=== PATIENT | female | born 1935 | race Caucasian/White ===

== ENCOUNTER 2023-12-12 12:51 | Inpatient (IN) ==
--- NOTE | 2023-12-12 13:21 | Emergency Department Note ---
History of Present Illness General Chief complaint: Fall Stated complaint: FALL Time Seen by Provider: 12/12/23 13:16 History of Present Illness Maximum Pain Intensity: 4 Chief Complaint: "Fall, chin laceration, left ear pain". History of Present Illness: This patient is an 88-year-old female who presents to the Emergency Department via EMS for evaluation of their facial injury status post fall. Patient sustained the laceration while earlier today just prior to arrival was ambulating and sustained a ground-level fall. She tripped on the sidewalk and fell forward. She does not believe her tetanus shot is up-to-date. She notes left ear region pain where there is some bleeding and pain in her left jaw. She also notes laceration to the right chin region. No loss of consciousness. No anticoagulant use. Home Medications Medication Instructions Recorded Confirmed Type Vitamin D3 1 tab PO DAILY 12/12/23 12/12/23 History ascorbic acid (vitamin C) 1 - 2 tabs PO DAILY 12/12/23 12/12/23 History aspirin 81 mg tablet,delayed 81 mg PO DAILY 12/12/23 12/12/23 History release biotin 1 cap PO DAILY 12/12/23 12/12/23 History calcium 2 tab PO DAILY 12/12/23 12/12/23 History metoprolol tartrate 25 mg tablet 12.5 mg PO DAILY 12/12/23 12/12/23 History mosvdqml-xawisdvq-fbn C 250 1 tab PO UD 12/12/23 12/12/23 History mg-herbal no.124 8.875 mg chewable tablet (Airborne (ascorbic acid)) multivitamin 1 tab PO DAILY 12/12/23 12/12/23 History vitamin E 1 tab PO DAILY 12/12/23 12/12/23 History Past Med/Surg History Social History Smoking Status: Never smoker Feels Safe at Home: Yes Review of Systems A total of 10 systems reviewed and were otherwise negative Physical Exam Vital Signs Vital Signs - 24 hr 12/12/23 13:02 12/12/23 15:22 12/12/23 17:00 Temperature 36.6 C Temperature Source Oral Pulse Rate 60 Pulse Rate [Finger] 64 62 Pulse Rhythm [Finger] Regular Pulse Strength [Finger] Normal Respiratory Rate 16 20 16 Respiratory Effort / Characteristics Non-Labored Spontaneous Non-Labored Spontaneous Respiratory Depth Normal Normal Normal Respiratory Pattern Regular Blood Pressure 188/139 H Blood Pressure [Right Arm] 178/100 H 172/102 H Blood Pressure Mean 155 Blood Pressure Mean [Right Arm] 126 125 Blood Pressure Position [Right Arm] Semi-fowlers Pulse Oximetry 98 97 96 Oxygen Delivery Method Room Air Room Air Room Air Sepsis Recent Fever Within 48 Hours No Sepsis New/Unexplained Change in Mental Status No Sepsis Action Taken by Nursing No Action Required Physical Exam: VITAL SIGNS - Vital signs and nursing notes were reviewed. Stable and afebrile. Hypertensive. GENERAL -88-year-old female appearing her stated age. Communicates well with provider and answers questions appropriately. SKIN - There is a 2 cm laceration noted chin region on the right side. The edges gape apart with traction. There is minimal active bleeding appreciated. No deep structures including vessels, musculature, or bony structures are appreciated. HEAD - Normocephalic. No Alexander's Sign or Raccoon's Eyes. No depressed skull fractures palpable. EYES - PERRL with EOMI bilaterally. Without subconjunctival hemorrhage. Palpebral conjunctiva pink and moist with no injection. EARS - No deformities of external structures noted on gross examination bilaterally. Left ear canal with visible blood that is dripping from the left ear and a slow steady trickle. Left TM mostly obscured. No sign of laceration to the ear canal. NOSE - Midline and without cyanosis. No epistaxis or clear watery discharge noted. Septum midline without deviation. No septal hematoma noted. No overlying ecchymosis noted. MOUTH/OROPHARYNX - Without perioral cyanosis. Tongue midline with equal elevation of palate bilaterally. No blood noted in the oropharynx. No tonsillar hypertrophy, erythema, or exudates noted. No dental fractures noted. Left TMJ region tender with suspected fracture/dislocation. NECK - FROM assessed. No tenderness to palpation over the cervical spinous processes. No cervical paraspinal muscle tenderness noted. LUNGS - Chest wall symmetric without accessory muscle use, intercostals retractions, or central cyanosis. Normal vesicular breath sounds CTA B/L. No wheezes, rales, or rhonchi appreciated. CARDIAC - RRR EXTREMITIES - No gross deformities noted of the extremities. +5/5 strength noted in UE/LE bilaterally. NEUROLOGIC - Cranial nerves II through XII grossly intact. PSYCH -alert, oriented and pleasant on exam. Course Administered Medications Sodium Chloride (Nss) 1,000 mls @ 100 mls/hr IV .Q10H OTILIA Stop: 01/11/24 16:59 Last Admin: 12/12/23 17:06 Dose: 100 mls/hr Documented By: LMM Discontinued Medications Diphtheria/Pertussis/Tetanus Vacc (Diphther/Tetan/Pertus Vaccine (Tdap, Adol/Adult) 0.5ml) 0.5 ml IM .ONCE ONE Stop: 12/12/23 14:59 Last Admin: 12/12/23 15:17 Dose: 0.5 ml Documented By: JL Acetaminophen (Ofirmev) 650 mg in 65 mls @ 260 mls/hr IV NOW ONE; Protocol Stop: 12/12/23 16:59 Last Infusion: 12/12/23 17:26 Dose: Infused Documented By: Admin: 12/12/23 17:09 Dose: 260 mls/hr Documented By: RADHA Ampicillin Sodium/Sulbactam Sodium 3,000 mg/ Sodium Chloride 100 mls @ 200 mls/hr IV NOW STA Stop: 12/12/23 19:09 Last Infusion: 12/12/23 19:54 Dose: Infused Documented By: Admin: 12/12/23 19:23 Dose: 200 mls/hr Documented By: DREW Lidocaine (Lidocaine/Epineph/Tetracaine 1 Ea Syr) 1 each EXT NOW STA Stop: 12/12/23 13:33 Last Admin: 12/12/23 14:10 Dose: 1 each Documented By: DERREK Medical Decision Making Laboratory Data 12/12/23 16:35 12/12/23 16:35 Lab Results 12/12/23 Range/Units 16:35 WBC 10.65 (4.8-10.8) K/ul RBC 4.80 (4.20-5.40) M/uL Hgb 15.4 (12.0-16.0) g/dl Hct 43.7 (37.0-47.0) % MCV 91.0 (80.0-100.0) fL MCH 32.1 (25.0-34.0) pg MCHC 35.2 (32.0-36.0) g/dL RDW Std Deviation 41.7 (36.4-46.3) fL RDW Coeff of Gil 12.4 (11.5-14.5) % Plt Count 233 (130-400) K/uL MPV 9.4 (9.4-12.4) fL Immature Gran % (Auto) 0.4 % Neut % (Auto) 82.7 % Lymph % (Auto) 10.3 % [place] % (Auto) 6.0 % Eos % (Auto) 0.1 % Baso % (Auto) 0.5 % Neut # (Auto) 8.81 H (1.40-6.50) K/uL Lymph # (Auto) 1.10 L (1.20-3.40) K/uL [place] # (Auto) 0.64 H (0.11-0.59) K/uL Eos # (Auto) 0.01 (0.00-0.50) K/uL Baso # (Auto) 0.05 (0.00-0.20) K/uL Immature Gran # (Auto) 0.04 (0.01-0.20) K/uL PT 10.7 (9.0-12.0) Seconds INR 1.0 (0.9-1.1) APTT 36 H (21-31) Seconds PTT Ratio 1.3 Sodium 132 L (136-145) mmol/L Potassium 4.3 (3.5-5.1) mmol/L Chloride 98 (98-107) mmol/L Carbon Dioxide 27 (21-32) mmol/L Anion Gap 7 (3-11) BUN 15 (6-23) mg/dl Creatinine 0.67 (0.6-1.2) mg/dl Est Cr Clr Drug Dosing 58.2 ml/min Est GFR ( Amer) 90.3 ml/min Est GFR (Non-Af Amer) 77.9 ml/min BUN/Creatinine Ratio 22.4 H (10-20) Glucose 114 H (70-99(Fasting)) mg/dl Calcium 10.2 (8.6-10.3) mg/dl Total Bilirubin 1.3 H (0.2-1.0) mg/dl AST 37 (13-39) U/L ALT 27 (7-52) U/L Alkaline Phosphatase 65 (34-104) U/L Total Protein 7.2 (6.0-8.3) gm/dl Albumin 4.5 (3.4-5.0) gm/dl Globulin 2.7 (2.5-4.0) gm/dl Albumin/Globulin Ratio 1.7 (0.9-2) Imaging Data Radiologist's Impression: Cervical Spine CT 12/12/23 13:[address] DOSE: HISTORY: Fall, L ear bleeding, chin laceration, facial pain TECHNIQUE: Multiaxial CT images of the cervical spine were performed and reformatted in the sagittal and coronal plane without the use of contrast. A dose lowering technique was utilized adhering to the principles of ALARA. COMPARISON: None. FINDINGS: There is a displaced/dislocated left mandibular condyle fracture which is better appreciated on the same day maxillofacial CT. No pneumothorax. Prevertebral soft tissues and the C1-C2 interval are intact. No fracture or subluxation within the cervical spine. Mild right and moderate left facet degenerative changes. There is severe disc space narrowing at C5-C6 and C6-C7 with small endplate osteophytes. IMPRESSION: 1. No fractures within the cervical spine. 2. A displaced/dislocated left mandibular condyle fracture which is better appreciated on the same day maxillofacial CT. ACT 112: Negative or not required by law. Electronically signed by: Sawyer Zuniga M.D. 12/12/2023 2:[address] 12/12/23 13:31 CT SCAN OF THE FACIAL BONES WITHOUT IV CONTRAST CLINICAL HISTORY: Fall. Bleeding from left ear. Chin laceration. COMPARISON STUDY: No priors. TECHNIQUE: High-resolution CT scan of the facial bones is performed. Images are reviewed in the axial, sagittal, and coronal planes. IV contrast was not administered for this examination. A dose lowering technique was utilized adhering to the principles of ALARA. FINDINGS: The skeletal structures are osteopenic. There is a comminuted and displaced fracture through the left mandibular neck with displaced fragments and dislocation of the left temporomandibular joint. There is surrounding hemorrhage. The remainder of the mandible appears intact. The right temporomandibular joint is preserved. The bony orbits are intact and the orbital contents are within normal limits noting bilateral ocular lens implants. The zygomatic arches, nasal bones, and pterygoid plates are preserved. The maxilla images intact. There are no layering blood products within the paranasal sinuses. There is trace mucosal thickening within the maxillary antra noting a 9 mm retention cyst on the left. Trace mucosal thickening is also seen in the ethmoid sinuses. Mastoid air cells are well pneumatized. The visualized calvarium and upper cervical spine are maintained. Partially imaged brain parenchyma is within normal limits. IMPRESSION: 1. Comminuted fracture of the left mandibular neck with displaced fragments and dislocation of the left TMJ. 2. The remainder of the mandible appears intact. 3. No additional facial bone fracture is seen. ACT 112: Negative or not required by law. Electronically signed by: Bruno Penn M.D. 12/12/2023 2:[address] 12/12/23 13:31 CT OF THE HEAD WITHOUT CONTRAST CLINICAL HISTORY: Fall, L ear bleeding, chin laceration, facial pain COMPARISON STUDY: No previous studies for comparison. CT DOSE: 1262.87 mGy.cm TECHNIQUE: Helical axial images of the head were obtained without IV contrast. Automated exposure control was utilized for the study. A dose lowering technique was utilized adhering to the principles of ALARA. FINDINGS: No acute intracranial hemorrhage, midline shift or mass effect is present. The ventricular system is unremarkable. The basal cisterns are patent. No extra-axial collections are present. There are no findings to suggest acute dural sinus thrombosis or acute territorial infarct. No calvarial fractures are present. Fracture/dislocation of the left mandibular condyle is better depicted on the facial bone CT which will be reported separately. Soft tissue thickening/small amount of hemorrhage within the left external auditory canal is present. IMPRESSION: 1. No acute intracranial findings. 2. Fracture/dislocation of the left mandibular condyle, better depicted on the facial bone CT which will be reported separately. Soft tissue thickening/small amount of hemorrhage within the left external auditory canal. 3. No calvarial fractures. ACT 112: Negative or not required by law. Electronically signed by: Gasper Baxter M.D. 12/12/2023 2:23 PM MDM Narrative ED Course: Patient was seen and evaluated as above. Patient presents to us today status post ground-level fall. Options of care were discussed with the patient. Patient had no focal neurological deficits. CT imaging of the head, face and neck were performed. Left TMJ fracture dislocation noted. I spoke with Dr. Hightower about the findings. He will come to evaluate the patient. Labs were ordered and revealed no leukocytosis or concerning anemia. Mild hyponatremia 132. Hyperglycemia 114. T. bili 1.3. Maintenance fluids ordered as well as IV acetaminophen. Risks and benefits of performing primary wound closure versus no repair were discussed with the patient who verbalizes understanding. Verbal consent was obtained prior to performing the procedure. Let gel was used to anesthetize the chin laceration. The wound was cleansed and prepped in the typical sterile fashion utilizing normal saline and Betadine. The wound was sterilely draped. Once proper anesthetization was established, the wound was further examined and demonstrated no evidence of deep structure injury or retained foreign body. The wound was copiously irrigated with normal saline and Betadine. The wound was closed using 5 simple, 6-0 nylon sutures with the wound edges being well approximated. Patient tolerated the procedure well. No complications were met. The wound was cleansed and dressed with a Bacitracin layer. Tetanus vaccine updated. Plan at this time after patient was evaluate by OMFS, Dr. Hightower is to proceed with operative intervention. She will be admitted to the medicine service overnight, IV antibiotics, n.p.o. after midnight and surgery tomorrow. This is reasonable. The bleeding from the left ear has slowed and at this time is not felt to require emergent intervention. I did discuss today's findings and plan of care with the patient's daughter via speaker phone in the room after patient called her daughter. Case discussed with the hospitalist service. Please refer to further documentation regarding her stay. In the evaluation and treatment of this patient the following differential diagnoses entertained: Fracture, dislocation, subluxation, contusion, sprain, strain, among others Impression & Plan Fall, Facial laceration, Mandibular fracture Discharge Plan Visit Data Chief Complaint: Fall Stated Complaint: FALL ED Provider: Mariola Collado ED Midlevel Provider: Poncho Pena Discharge Problem: Fall, Facial laceration, Mandibular fracture Patient Disposition: Home - Self-Care Condition: Good Discharge Instructions Interventions: ED Discharge Assessment Last Done: 12/12/23 21:40 Forms Stand Alone Forms: [facility], Important Visit Information Prescriptions Prescriptions: No Action multivitamin [Multi-Vitamin] Tablet 1 tab PO DAILY aspirin [Aspir-81] 81 mg Tablet,Delayed Release (Dr/Ec) 81 mg PO DAILY metoprolol tartrate 25 mg tablet 12.5 mg PO DAILY Airborne (ascorbic acid) 250-8.875 mg Tablet,Chewable 1 tab PO UD Vitamin D3 1 tab PO DAILY ascorbic acid (vitamin C) 1 - 2 tabs PO DAILY biotin 1 cap PO DAILY calcium 2 tab PO DAILY vitamin E 1 tab PO DAILY Referrals Referrals: Sawyer Nobles DO [Primary Care Provider] -
[2023-12-12] MEDS: LIDOCAINE/EPINEPH/TETRACAINE 1 EA SYR EXT STA (14:10)
--- NOTE | 2023-12-12 14:18 | CT Scan Report ---
CERVICAL SPINE CT CT DOSE: HISTORY: Fall, L ear bleeding, chin laceration, facial pain TECHNIQUE: Multiaxial CT images of the cervical spine were performed and reformatted in the sagittal and coronal plane without the use of contrast. A dose lowering technique was utilized adhering to th e principles of ALARA. COMPARISON: None. FINDINGS: There is a displaced/dislocated left mandibular condyle fracture which is better appreciate d on the same day maxillofacial CT. No pneumothorax. Prevertebral soft tissues and the C1-C2 interval are intact. No fracture or subluxation within the cervical spine. Mild right and moderate left facet degenerative changes. There is severe disc space narrowing at C5-C6 and C6-C7 with small endplate os teophytes. IMPRESSION: 1. No fractures within the cervical spine. 2. A displaced/dislocated left mandibular condyle fracture which is better appreciated on the same da y maxillofacial CT. ACT 112: Negative or not required by law. Electronically signed by: Sawyer Zuniga M.D. 12/12/2023 2:16 PM
--- NOTE | 2023-12-12 14:25 | CT Scan Report ---
CT OF THE HEAD WITHOUT CONTRAST CLINICAL HISTORY: Fall, L ear bleeding, chin laceration, facial pain COMPARISON STUDY: No previous studies for comparison. CT DOSE: 1262.87 mGy.cm TECHNIQUE: Helical axial images of the head were obtained without IV contrast. Automated exposure con trol was utilized for the study. A dose lowering technique was utilized adhering to the principles o f ALARA. FINDINGS: No acute intracranial hemorrhage, midline shift or mass effect is present. The ventricular system is unremarkable. The basal cisterns are patent. No extra-axial collections are present. There are no findings to suggest acute dural sinus thrombosis or acute territorial infarct. No calvarial fr actures are present. Fracture/dislocation of the left mandibular condyle is better depicted on the fa cial bone CT which will be reported separately. Soft tissue thickening/small amount of hemorrhage wit hin the left external auditory canal is present. IMPRESSION: 1. No acute intracranial findings. 2. Fracture/dislocation of the left mandibular condyle, better depicted on the facial bone CT which w ill be reported separately. Soft tissue thickening/small amount of hemorrhage within the left externa l auditory canal. 3. No calvarial fractures. ACT 112: Negative or not required by law. Electronically signed by: Gasper Baxter M.D. 12/12/2023 2:23 PM
--- NOTE | 2023-12-12 14:39 | CT Scan Report ---
CT SCAN OF THE FACIAL BONES WITHOUT IV CONTRAST CLINICAL HISTORY: Fall. Bleeding from left ear. Chin laceration. COMPARISON STUDY: No priors. TECHNIQUE: High-resolution CT scan of the facial bones is performed. Images are reviewed in the axia l, sagittal, and coronal planes. IV contrast was not administered for this examination. A dose lower ing technique was utilized adhering to the principles of ALARA. FINDINGS: The skeletal structures are osteopenic. There is a comminuted and displaced fracture throug h the left mandibular neck with displaced fragments and dislocation of the left temporomandibular jolanta nt. There is surrounding hemorrhage. The remainder of the mandible appears intact. The right temporom andibular joint is preserved. The bony orbits are intact and the orbital contents are within normal l imits noting bilateral ocular lens implants. The zygomatic arches, nasal bones, and pterygoid plates are preserved. The maxilla images intact. There are no layering blood products within the paranasal s inuses. There is trace mucosal thickening within the maxillary antra noting a 9 mm retention cyst on the left. Trace mucosal thickening is also seen in the ethmoid sinuses. Mastoid air cells are well pn eumatized. The visualized calvarium and upper cervical spine are maintained. Partially imaged brain p arenchyma is within normal limits. IMPRESSION: 1. Comminuted fracture of the left mandibular neck with displaced fragments and dislocation of the le ft TMJ. 2. The remainder of the mandible appears intact. 3. No additional facial bone fracture is seen. ACT 112: Negative or not required by law. Electronically signed by: Bruno Penn M.D. 12/12/2023 2:37 PM
[2023-12-12] MEDS: DIPHTHER/TETAN/PERTUS Vaccine (Tdap, Adol/Adult) 0.5mL IM ONE (15:17)
[2023-12-12 17:04] LABS: Basophils # (auto) 0.05 K/uL (0.00-0.20); Basophils % (auto) 0.5 %; Eosinophils # (auto) 0.01 K/uL (0.00-0.50); Eosinophils % (auto) 0.1 %; Hematocrit (blood only) 43.7 % (37.0-47.0); Hemoglobin 15.4 g/dl (12.0-16.0); Immature Granulocytes # (auto) 0.04 K/uL (0.01-0.20); Immature Granulocytes % (auto) 0.4 %; Lymphocytes % (auto) 10.3 %; Mean Corpuscular Hemoglobin 32.1 pg (25.0-34.0); Mean Corpuscular Hgb Conc 35.2 g/dL (32.0-36.0); Mean Platelet Volume 9.4 fL (9.4-12.4); Monocytes # (auto) 0.64 K/uL (0.11-0.59); Neutrophils # (auto) 8.81 K/uL (1.40-6.50); Neutrophils % (auto) 82.7 %; Platelet Count 233 K/uL (130-400); RDW Coefficient of Variation 12.4 % (11.5-14.5); RDW Standard Deviation 41.7 fL (36.4-46.3); White Blood Count 10.65 K/ul (4.8-10.8)
[2023-12-12] MEDS: SODIUM CHLORIDE 0.9% 1,000 ML IV SCH (17:06)
[2023-12-12] MEDS: ACETAMINOPHEN 650 MG/65 ML VIAL IV ONE (17:09)
[2023-12-12 17:17] LABS: Albumin Globulin Ratio 1.7 (0.9-2); Albumin Level 4.5 gm/dl (3.4-5.0); BUN Creatinine Ratio 22.4 (10-20); Bilirubin,Total 1.3 mg/dl (0.2-1.0); Calcium 10.2 mg/dl (8.6-10.3); Creatinine Clr Calc Pharmacy 58.2 ml/min; Est GFR (African American) 90.3 ml/min; Est GFR (Non-African American) 77.9 ml/min; Globulin 2.7 gm/dl (2.5-4.0); Potassium 4.3 mmol/L (3.5-5.1); Total Protein 7.2 gm/dl (6.0-8.3)
[2023-12-12 17:24] LABS: Partial Thromboplastin Ratio 1.3; Partial Thromboplastin Time 36 Seconds (21-31); Prothrombin Time 10.7 Seconds (9.0-12.0)
--- NOTE | 2023-12-12 18:32 | Emergency Department Note ---
ED Visit Note I was consulted by the Advanced Practice Provider, Poncho Pena PA-C. I performed a substantive portion of the visit. This includes aspects of: History: Patient is an 88-year-old female presenting after ground-level fall. She states that she lost her footing and fell, striking her jaw on the ground. Reports that she felt a popping sensation in the jaw. Denies any loss of consciousness. She is not on any anticoagulation. Tetanus is not up-to-date. MDM: - Laboratory workup interpreted by myself showed normal WBC; stable electrolytes - CT head wo contrast negative for acute intracranial pathology - CT facial bones wo contrast showed fracture/dislocation of left mandibular condyle, with small hemorrhage within left external auditory canal. Noted to have comminuted fracture of left mandibular neck with displaced fragments and dislocation of left TMJ. - CT cervical spine wo contrast negative for acute pathology of cervical spine. - Patient given updated Tdap. Given 1L NS and 650 mg IV tylenol. - Given IV unasyn for concern for open fracture. - Oral/plastic surgeon, Dr. Hightower, consulted. Plans to take patient to OR tomorrow. Requests admission to medicine. - Patient's facial laceration was repaired by Poncho. Please see procedure note. - Patient admitted to inpatient hospitalist service for further evaluation and management. .
[2023-12-12] MEDS ORDERED: MoRPHine SULFATE 2 MG/ML CARP IV PRN (19:07)
--- NOTE | 2023-12-12 19:16 | History & Physical Report ---
Date of Service December 12, 2023 Assessment & Plan (1) Facial laceration: Plan: -Sustained a laceration under the left chin -Was repaired in the ED, no acute bleeding -Did receive a tetanus booster in the ED -Rest of care per Dr. Hightower (2) HTN (hypertension): Plan: -Stable -Continue metoprolol Plan The patient was discussed with Dr. Merrill at the time of the admission History of Present Illness Chief Complaint: Fall, left facial lacerations Primary Care Provider: DO Zoya Kendall is an 88 year old female with a PMH significant for HTN who presented to the [facility] ED on 12/12/23 after sustaining a left ear and left chin laceration from a ground level fall this afternoon. She was noted to be hypertensive on arrival at 188/139 but was otherwise stable. Labs were significant for a sodium of 132. CT head/brain wo con was read as No acute intracranial findings. 2. Fracture/dislocation of the left mandibular condyle, better depicted on the facial bone CT which will be reported separately. Soft tissue thickening/small amount of hemorrhage within the left external auditory canal.3. No calvarial fractures.. CT face wo con was read as 1. Comminuted fracture of the left mandibular neck with displaced fragments and dislocation of the left TMJ. 2. The remainder of the mandible appears intact. 3. No additional facial bone fracture is seen.. Cervical spine CT was read as 1. No fractures within the cervical spine. 2. A displaced/dislocated left mandibular condyle fracture which is better appreciated on the same day maxillofacial CT.. Prior to admission the patient was given a dose of Unasyn, 1L NSS, and a tetanus booster. Dr. Hightower will take the patient to the OR tomorrow for surgical repair. At the time of the exam the patient was sitting in bed in no acute distress, currently eating dinner consisting of soft food. She states that she was going on a walk when her foot caught the sidewalk causing her to lose her balance and fall. She landed on her left side hitting her chin and left side of her face on the ground. She did not lose consciousness and was able to get herself off the ground. After her fall she was experiencing pain at the site of her chin lace ration along with left upper jaw pain. She was evaluated by Urgent Care who sent her to the ED after they noticed blood in her left internal auditory canal. She denies current headache, changes in vision, hearing, taste, smell, dizziness, lightheadedness, chest pain, SOB, cough, nausea, vomiting, diarrhea, dysuria, hematuria. She is a full code and would want her daughter to make medical decisions for her is she cannot make them herself. Please refer to Dr. Merrill's attestation for any changes to the treatment plan Allergies Allergy/AdvReac Type Severity Reaction Status Date / Time No Known Allergies Allergy Unverified 12/18/23 09:26 Home Medications Medication Instructions Recorded Confirmed Type Vitamin D3 1 tab PO DAILY 12/12/23 12/18/23 History ascorbic acid (vitamin C) 1 - 2 tabs PO DAILY 12/12/23 12/18/23 History aspirin 81 mg tablet,delayed 81 mg PO DAILY 12/12/23 12/18/23 History release biotin 1 cap PO DAILY 12/12/23 12/18/23 History calcium 2 tab PO DAILY 12/12/23 12/18/23 History metoprolol tartrate 25 mg tablet 12.5 mg PO DAILY 12/12/23 12/18/23 History [id number]-[id number]-[id number] C 250 1 tab PO UD 12/12/23 12/18/23 History mg-herbal no.124 8.875 mg chewable tablet (Airborne (ascorbic acid)) multivitamin 1 tab PO DAILY 12/12/23 12/18/23 History vitamin E 1 tab PO DAILY 12/12/23 12/18/23 History acetaminophen 325 mg/10.15 mL oral 650 mg (20.3 mL) PO Q4H PRN fever 12/14/23 12/18/23 Rx suspension or pain 10 days #50 mL amoxicillin 400 mg-potassium 11 ml PO BID 10 days #220 mL 12/14/23 12/18/23 Rx clavulanate 57 mg/5 mL oral suspension chlorhexidine gluconate 0.12 % 15 ml MT BID 15 days #200 mL 12/14/23 12/18/23 Rx mouthwash lorazepam 1 mg tablet (Ativan) 1 mg PO DAILY PRN ANEXITY 12/14/23 12/18/23 Rx SECONDARY TO JAWS WIRED CLOSED #20 tabs morphine 10 mg/5 mL oral solution 5 mg (2.5 mL) PO Q6H #100 mL 12/14/23 12/18/23 Rx Past Med/Surg History Medical History (Updated 12/13/23 @ 15:20 by Fish Hightower DMD) Encounter for pre-operative examination HTN (hypertension) Mandibular fracture Fall Surgical History (Updated 12/14/23 @ 11:53 by Susana Brower RN) History of mandibular surgery (12/13/23) Left Mandible Fracture Open Reduction Internal Fixation(Left) - Fsih Hightower DMD Social History Smoking Status: Never smoker Hx Alcohol Use: Yes Alcohol type: wine Hx Substance Use: No Preferred Language: Bangladeshi Communication Ability: Effective Visual Impairment: No Limitations Sec Reporting Consultant Required: No Beliefs That Will Affect Care: None Feels Safe at Home: Yes Assistive Devices: None Physical Exam Physical Exam: Physical Exam: General: In no acute distress, stated age, well-nourished, good hygiene HEENT: Patient with chin laceration stitched and without signs of active bleeding, tenderness to palpation over the left TMJ, no acute trauma in the oropharynx, no brusing noted on examination of the external auditory canal or mastoid process, dried blood noted in the left external auditory canal, tympanic membrane unable to be visualized due to swelling, no acute changes on inspection of the right ear , no scleral icterus, pupils around round, symmetrical, and reactive to light, moist mucus membranes, trachea midline, no thyromegaly Chest/Pulm: No respiratory distress, symmetrical chest expansion, clear breath sounds throughout Cardiac: RRR, no murmurs noted Abdomen: Negative for ascites and bruising, normoactive bowel sounds, soft, non-tender to palpation throughout Musculoskeletal: HEENT exam as above, no acute trauma noted of the cervical, thoracic, or lumbar spine, full ROM without pain of the BL upper and lowed extremities Extremities: Radial, dorsalis pedis, and posterior tibial pulses are intact and symmetrical, no edema noted in the BL LE's Skin: HEENT exam as above, left knee abrasion cleaned and bandaged in the ED is without signs of drainage Neuro: Alert and oriented to person, place, month, year, and president, no focal defects, CN II-XII tested and intact, no tremors noted Psych: No acute distress, calm and cooperative during the exam Results & Data Results & Data Vital Signs (Past 12 Hours) Vital Signs Temp Pulse Pulse Resp BP BP Pulse Ox 12/12/23 17:00 62 16 172/102 H 96 12/12/23 15:22 64 20 178/100 H 97 12/12/23 13:02 36.6 C 60 16 188/139 H 98 O2 Del Method 12/12/23 17:00 Room Air 12/12/23 15:22 Room Air 12/12/23 13:02 Room Air Laboratory Results Abnormal lab results 12/12/23 Range/Units 16:35 Neut # (Auto) 8.81 H (1.40-6.50) K/uL Lymph # (Auto) 1.10 L (1.20-3.40) K/uL Bryan # (Auto) 0.64 H (0.11-0.59) K/uL APTT 36 H (21-31) Seconds Sodium 132 L (136-145) mmol/L BUN/Creatinine Ratio 22.4 H (10-20) Glucose 114 H (70-99(Fasting)) mg/dl Total Bilirubin 1.3 H (0.2-1.0) mg/dl Diagnostic Findings Cervical Spine CT 12/12/23 13:[address] DOSE: HISTORY: Fall, L ear bleeding, chin laceration, facial pain TECHNIQUE: Multiaxial CT images of the cervical spine were performed and reformatted in the sagittal and coronal plane without the use of contrast. A dose lowering technique was utilized adhering to the principles of ALARA. COMPARISON: None. FINDINGS: There is a displaced/dislocated left mandibular condyle fracture which is better appreciated on the same day maxillofacial CT. No pneumothorax. Prevertebral soft tissues and the C1-C2 interval are intact. No fracture or subluxation within the cervical spine. Mild right and moderate left facet degenerative changes. There is severe disc space narrowing at C5-C6 and C6-C7 with small endplate osteophytes. IMPRESSION: 1. No fractures within the cervical spine. 2. A displaced/dislocated left mandibular condyle fracture which is better appreciated on the same day maxillofacial CT. ACT 112: Negative or not required by law. Electronically signed by: Sawyer Zuniga M.D. 12/12/2023 2:[address] 12/12/23 13:31 CT SCAN OF THE FACIAL BONES WITHOUT IV CONTRAST CLINICAL HISTORY: Fall. Bleeding from left ear. Chin laceration. COMPARISON STUDY: No priors. TECHNIQUE: High-resolution CT scan of the facial bones is performed. Images are reviewed in the axial, sagittal, and coronal planes. IV contrast was not administered for this examination. A dose lowering technique was utilized adhering to the principles of ALARA. FINDINGS: The skeletal structures are osteopenic. There is a comminuted and displaced fracture through the left mandibular neck with displaced fragments and dislocation of the left temporomandibular joint. There is surrounding hemorrhage. The remainder of the mandible appears intact. The right temporomandibular joint is preserved. The bony orbits are intact and the orbital contents are within normal limits noting bilateral ocular lens implants. The zygomatic arches, nasal bones, and pterygoid plates are preserved. The maxilla images intact. There are no layering blood products within the paranasal sinuses. There is trace mucosal thickening within the maxillary antra noting a 9 mm retention cyst on the left. Trace mucosal thickening is also seen in the ethmoid sinuses. Mastoid air cells are well pneumatized. The visualized calvarium and upper cervical spine are maintained. Partially imaged brain parenchyma is within normal limits. IMPRESSION: 1. Comminuted fracture of the left mandibular neck with displaced fragments and dislocation of the left TMJ. 2. The remainder of the mandible appears intact. 3. No additional facial bone fracture is seen. ACT 112: Negative or not required by law. Electronically signed by: Bruno Penn M.D. 12/12/2023 2:[address] 12/12/23 13:31 CT OF THE HEAD WITHOUT CONTRAST CLINICAL HISTORY: Fall, L ear bleeding, chin laceration, facial pain COMPARISON STUDY: No previous studies for comparison. CT DOSE: 1262.87 mGy.cm TECHNIQUE: Helical axial images of the head were obtained without IV contrast. Automated exposure control was utilized for the study. A dose lowering technique was utilized adhering to the principles of ALARA. FINDINGS: No acute intracranial hemorrhage, midline shift or mass effect is present. The ventricular system is unremarkable. The basal cisterns are patent. No extra-axial collections are present. There are no findings to suggest acute dural sinus thrombosis or acute territorial infarct. No calvarial fractures are present. Fracture/dislocation of the left mandibular condyle is better depicted on the facial bone CT which will be reported separately. Soft tissue thick ening/small amount of hemorrhage within the left external auditory canal is present. IMPRESSION: 1. No acute intracranial findings. 2. Fracture/dislocation of the left mandibular condyle, better depicted on the facial bone CT which will be reported separately. Soft tissue thickening/small amount of hemorrhage within the left external auditory canal. 3. No calvarial fractures. ACT 112: Negative or not required by law. Electronically signed by: Gasper Baxter M.D. 12/12/2023 2:23 PM Code Status & VTE Plan Code Status Full code VTE Prophylaxis Plan VTE Prophylaxis will be ordered: Yes Supervising Physician Co-Signing Physician Notes Patient seen and examined, chart reviewed, case discussed with Heron Carrera and I agree with the assessment and plan as above except as otherwise noted above. 88yo F who tripped and sustained facial fracture. No syncope/lightheadedness/dizziness/chestpain/chest pressure. CT-H/CT-Cspine naf. CT-Face with comminuted fracture of LEFT mandibular neck, displaced fragments and TMJ dislocation. PT to have operative repair with Dr. Hightower 12/13/23. OK to admit on medical service. L ear trauma +blood, TM unable to be completely visualized but hearing is intact, no pain. Chin laceration suture repaired and well approximated. Past MHx of HTN, continued on metoprolol 12.5mg daily. Prophylactic aspirin temporarily held. No blood thinner use. No cardiac sx. Agree w/ above PG Care Time/CCT Total # of Minutes Spent Total Time Spent with Patient: Total time spent is greater than 50% in coordination of care (as documented) at patient's floor/unit and/or counseling patient: [place] [address] INT INP/OBS CARE 2/55MIN Patient Type New Medical Decision Making Moderate Complexity Diagnoses Facial laceration S01.81XA HTN (hypertension) I10
[2023-12-12] MEDS: AMPICILLIN/SULBACTAM SOD 3,000 MG in SODIUM CHLOR 0.9% MINI-B 100 ML IV STA (19:23)
--- NOTE | 2023-12-12 20:37 | Oral/Maxillofacial Consult ---
Date of Consultation December 12, 2023 Assessment & Plan (1) Mandibular fracture: (2) Facial laceration: (3) Fall: (4) HTN (hypertension): (5) Closed jaw fracture: (6) Condylar process of mandible, closed fracture: (7) Laceration of left ear canal: History of Present Illness History of Present Illness Oral Maxillofacial Surgery Exam Present Complaint: Zoya is an 88 year old female with a PMH significant for HTN who presented to the [facility] ED on 12/12/23 after sustaining a left ear and left chin laceration from a ground level fall this afternoon. She was noted to be hypertensive on arrival at 188/139 but was otherwise stable. Labs were significant for a sodium of 132. CT head/brain wo con was read as No acute intracranial findings. 2. Fracture/dislocation of the left mandibular condyle, better depicted on the facial bone CT which will be reported separately. Soft tissue thickening/small amount of hemorrhage within the left external auditory canal.3. No calvarial fractures.. CT face wo con was read as 1. Comminuted fracture of the left mandibular neck with displaced fragments and dislocation of the left TMJ. 2. The remainder of the mandible appears intact. 3. No additional facial bone fracture is seen.. Cervical spine CT was read as 1. No fractures within the cervical spine. 2. A displaced/dislocated left mandibular condyle fracture which is better appreciated on the same day maxillofacial CT.. Prior to admission the patient was given a dose of Unasyn, 1L NSS, and a tetanus booster. Dr. Hightower will take the patient to the OR tomorrow for surgical repair. At the time of the exam the patient was sitting in bed in no acute distress, currently eating dinner consisting of soft food. She states that she was going on a walk when her foot caught the sidewalk causing her to lose her balance and fall. She landed on her left side hitting her chin and left side of her face on the ground. She did not lose consciousness and was able to get herself off the ground. After her fall she was experiencing pain at the site of her chin laceration along with left upper jaw pain. She was evaluated by Urgent Care who sent her to the ED after they noticed blood in her left internal auditory canal. She denies current headache, changes in vision, hearing, taste, smell, dizziness, lightheadedness, chest pain, SOB, cough, nausea, vomiting, diarrhea, dysuria, hematuria. She is a full code and would want her daughter to make medical decisions for her is she cannot make them herself. Oral Exam: Finding--Excellent dentition, as a result of the left condyle fracture there is premature contact on the left side with deviation to the left and right side posterior open bite. No fractured teeth Opening well but with pain and traumatic malocclusion. Imaging: CT SCAN OF THE FACIAL BONES WITHOUT IV CONTRAST CLINICAL HISTORY: Fall. Bleeding from left ear. Chin laceration. FINDINGS: The skeletal structures are osteopenic. There is a comminuted and displaced fracture through the left mandibular neck with displaced fragments and dislocation of the left temporomandibular joint. There is surrounding hemorrhage. The remainder of the mandible appears intact. The right temporomandibular joint is preserved. The bony orbits are intact and the orbital contents are within normal limits noting bilateral ocular lens implants. The zygomatic arches, nasal bones, and pterygoid plates are preserved. The maxilla images intact. There are no layering blood products within the paranasal sinuses. There is trace mucosal thickening within the maxillary antra noting a 9 mm retention cyst on the left. Trace mucosal thickening is also seen in the ethmoid sinuses. Mastoid air cells are well pneumatized. The visualized calvarium and upper cervical spine are maintained. Partially imaged brain parenchyma is within normal limits. IMPRESSION: 1. Comminuted fracture of the left mandibular neck with displaced fragments and dislocation of the left TMJ. 2. The remainder of the mandible appears intact. 3. No additional facial bone fracture is seen. Soft tissue: The floor of the mouth, tongue, hard/soft palate, posterior pharyngeal area all with in normal limits, no pathology or abnormal findings noted. No lesions noted that require follow up or Bx. Oral Care: Overall oral care is good Occlusion: Class I pre-fracture Post fracture in ER deviation to the left with right lateral open bite TMJ exam: No pop, clicking, pain, good ROM right side Recent history of TMJ injury left intracapsular fracture no entrapment. Periodontal exam: Healthy gingival tissue without evidence of periodontal pathology. Head/Neck exam: Neck is supple, FROM, Able to extend and flex neck w/o difficulty, no masses, no abnormalities, no airway issues, no evidence of sleep apnea. Some dried blood in EAC left from crush injury of left TMJ associated with bony canal. Well closed chin laceration repaired in ED Treatment Plan: Set up with general anesthesia in hospital due to complexity of the procedure Closed reduction for a functional reduction of left intracapsular fracture using Hybrid arch bars and guiding elastics. May consider elastic traction or a few weeks I reviewed the treatment plan and consent with the patient and her daughter (Jacquie) over the phone (daughter driving in from [facility]) Understanding was expressed. Time was given for questions regarding the surgery, risks and post op care. Discussed alternative to treatment--procedure as planned, Do not do surgery--really not an option Risks discussed: Bleeding,Pain,swelling,infection,ear canal problems, delayed healing, nerve injury to face,lips,tongue,chin area which could be permanent (rare). TMJ, jaw stiffness, change in bite (rare), ear pain (referred), noise, crepitus, DJD Sinus problems like fistula or infection. Relationship of teeth roots when placing the Hybrid arch bars injury to nerve/sinus Malunion,jaw deviation to the left. Home care reviewed: Need to maintain ideal -- tooth brushing, rinsing and follow up care with Dr Hightower. diet=[id number] dental. Discussed activity level, driving/work while on Rx pain Meds. Discussed fixation and then functional elastics Surgery to be set up for after 1 pm December 13, 2023 in OR Home Medications Medication Instructions Recorded Confirmed Type Vitamin D3 1 tab PO DAILY 12/12/23 12/12/23 History ascorbic acid (vitamin C) 1 - 2 tabs PO DAILY 12/12/23 12/12/23 History aspirin 81 mg tablet,delayed 81 mg PO DAILY 12/12/23 12/12/23 History release biotin 1 cap PO DAILY 12/12/23 12/12/23 History calcium 2 tab PO DAILY 12/12/23 12/12/23 History metoprolol tartrate 25 mg tablet 12.5 mg PO DAILY 12/12/23 12/12/23 History lpibamow-gooojkuy-efi C 250 1 tab PO UD 12/12/23 12/12/23 History mg-herbal no.124 8.875 mg chewable tablet (Airborne (ascorbic acid)) multivitamin 1 tab PO DAILY 12/12/23 12/12/23 History vitamin E 1 tab PO DAILY 04/16/24 04/16/24 History Patient History Social History Smoking Status: Never smoker Feels Safe at Home: Yes Results & Data Vital Signs (Past 12 Hours) Vital Signs Temp Pulse Pulse Resp BP BP Pulse Ox 12/12/23 17:00 62 16 172/102 H 96 12/12/23 15:22 64 20 178/100 H 97 12/12/23 13:02 36.6 C 60 16 188/139 H 98 O2 Del Method 12/12/23 17:00 Room Air 12/12/23 15:22 Room Air 12/12/23 13:02 Room Air PG Care Time/CCT Total # of Minutes Spent Total Time Spent with Patient: Total time spent is greater than 50% in coordination of care (as documented) at patient's floor/unit and/or counseling patient: Coding Level of Care Code 18479 INT INP/OBS CARE 255MIN Diagnoses Mandibular fracture S02.609A Encounter type: initial encounter Fracture type: closed Mandible location: condylar process Facial laceration, subsequent encounter S01.81XD Encounter type: subsequent encounter Fall, initial encounter W19.XXXA Encounter type: initial encounter HTN (hypertension) I10 Closed fracture of jaw, initial encounter S02.609A Encounter type: initial encounter Closed fracture of left condylar process of mandible, initial encounter S02.612A Encounter type: initial encounter Laterality: left Laceration of left ear canal, initial encounter S01.312A Encounter type: initial encounter CPT Codes CL TX MANDIBULAR FX W INTERDENTAL FIXATION - [id number] ([id number]) (1) Mandibular fracture Encounter type: initial encounter Fracture type: closed Mandible location: condylar process (2) Facial laceration Encounter type: subsequent encounter Qualified Code(s): S01.81XD - Laceration without foreign body of other part of head, subsequent encounter (3) Fall Encounter type: initial encounter Qualified Code(s): W19.XXXA - Unspecified fall, initial encounter (5) Closed jaw fracture Encounter type: initial encounter Qualified Code(s): S02.609A - Fracture of mandible, unspecified, initial encounter for closed fracture (6) Condylar process of mandible, closed fracture Encounter type: initial encounter Laterality: left Qualified Code(s): S02.612A - Fracture of condylar process of left mandible, initial encounter for closed fracture (7) Laceration of left ear canal Encounter type: initial encounter Qualified Code(s): S01.312A - Laceration without foreign body of left ear, initial encounter
[2023-12-12] MEDS: ACETAMINOPHEN 325 MG TAB PO SCH (22:39)
[2023-12-12] MEDS: Patient's ALLERGY Info needs ENTERED SCH (22:56)
[2023-12-12] MEDS: LORazepam 0.5 MG TAB PO ONE (23:07)
[2023-12-13] MEDS: AMPICILLIN/SULBACTAM SOD 3,000 MG in SODIUM CHLOR 0.9% MINI-B 100 ML IV SCH (02:14)
[2023-12-13] MEDS: METOPROLOL TARTRATE 25 MG TAB PO SCH (07:51)
[2023-12-13] MEDS: ASPIRIN 81 MG ECTAB PO SCH (07:51)
[2023-12-13 07:58] LABS: Basophils # (auto) 0.03 K/uL (0.00-0.20); Basophils % (auto) 0.6 %; Eosinophils # (auto) 0.04 K/uL (0.00-0.50); Eosinophils % (auto) 0.8 %; Hematocrit (blood only) 39.9 % (37.0-47.0); Immature Granulocytes # (auto) 0.02 K/uL (0.01-0.20); Immature Granulocytes % (auto) 0.4 %; Lymphocytes # (auto) 1.21 K/uL (1.20-3.40); Lymphocytes % (auto) 22.7 %; Mean Corpuscular Hgb Conc 35.1 g/dL (32.0-36.0); Mean Corpuscular Volume 91.1 fL (80.0-100.0); Mean Platelet Volume 9.1 fL (9.4-12.4); Monocytes # (auto) 0.64 K/uL (0.11-0.59); Neutrophils # (auto) 3.39 K/uL (1.40-6.50); Neutrophils % (auto) 63.5 %; Platelet Count 219 K/uL (130-400); RDW Coefficient of Variation 12.9 % (11.5-14.5); RDW Standard Deviation 43.2 fL (36.4-46.3); Red Blood Count 4.38 M/uL (4.20-5.40); White Blood Count 5.33 K/ul (4.8-10.8)
[2023-12-13 08:15] LABS: BUN Creatinine Ratio 15.6 (10-20); Calcium 9.2 mg/dl (8.6-10.3); Creatinine Clr Calc Pharmacy 60.9 ml/min; Est GFR (African American) 91.7 ml/min; Est GFR (Non-African American) 79.1 ml/min; Magnesium 1.9 mg/dl (1.7-2.4); Potassium 4.6 mmol/L (3.5-5.1)
[2023-12-13 08:16] LABS: Prothrombin Time 10.9 Seconds (9.0-12.0)
--- NOTE | 2023-12-13 10:16 | Anesthesiology Consultation ---
Date of Service December 13, 2023 Assessment & Plan (1) Encounter for pre-operative examination: Chart Review Chart Review: Acceptable Risk for Surgery and Patient NOT seen in Pre Admission Testing Will order preop ECG. Consults Requested none History Surgery Operation Date: 12/13/23 11:00 Proposed Procedures p [place] Mandible Fracture Open Reduction Internal Fixation - Fish Hightower, DMD Height/Weight Height: 5 ft 6 in Weight: 73 kg Allergies Allergy/AdvReac Type Severity Reaction Status Date / Time No Known Allergies Allergy Unverified 12/12/23 22:56 Medications Home Medications Medication Instructions Recorded Confirmed Last Taken Vitamin D3 1 tab PO DAILY 12/12/23 12/12/23 Unknown ascorbic acid (vitamin C) 1 - 2 tabs PO DAILY 12/12/23 12/12/23 Unknown aspirin 81 mg tablet,delayed 81 mg PO DAILY 12/12/23 12/12/23 Unknown release biotin 1 cap PO DAILY 12/12/23 12/12/23 Unknown calcium 2 tab PO DAILY 12/12/23 12/12/23 Unknown metoprolol tartrate 25 mg tablet 12.5 mg PO DAILY 12/12/23 12/12/23 Unknown exinqghj-fivtumul-iuq C 250 1 tab PO UD 12/12/23 12/12/23 Unknown mg-herbal no.124 8.875 mg chewable tablet (Airborne (ascorbic acid)) multivitamin 1 tab PO DAILY 12/12/23 12/12/23 Unknown vitamin E 1 tab PO DAILY 12/12/23 12/12/23 Unknown Active Medications Generic Name Dose Route Start Last Admin Trade Name Freq PRN Reason Stop Dose Admin Acetaminophen 650 mg 12/12/23 23:00 12/13/23 05:39 Acetaminophen 325 Mg Tab PO 01/11/24 22:59 650 mg Q6H OTILIA Administration Aspirin 81 mg 12/13/23 09:00 12/13/23 07:51 Aspirin 81 Mg Ectab PO 01/12/24 08:59 81 mg DAILY OTILIA Administration Sodium Chloride 1,000 mls @ 100 mls/hr 12/12/23 17:00 12/13/23 02:14 Nss IV 01/11/24 16:59 100 mls/hr .Q10H OTILIA Administration Ampicillin Sodium/Sulbactam 100 mls @ 100 mls/hr 12/13/23 02:00 12/13/23 08:45 Sodium 3,000 mg/ Sodium IV 12/23/23 01:59 Infused Chloride Q6H OTILIA Infusion Metoprolol Tartrate 12.5 mg 12/13/23 09:00 12/13/23 07:51 Metoprolol Tartrate 25 Mg Tab PO 01/12/24 08:59 Not Given DAILY OTILIA Past Medical History Medical History (Updated 12/13/23 @ 10:16 by Juan Manuel Wolfe MD) Encounter for pre-operative examination HTN (hypertension) Mandibular fracture Fall (3) Mandibular fracture: Plan: -Sustained a Comminuted fracture of the left mandibular neck with displaced fragments and dislocation of the left TMJ -Patient able to open her mouth enough to eat/drink with experiences significant pain with chewing and opening her mouth wide Social History Smoking Status: Never smoker Hx Alcohol Use: Yes Alcohol type: wine alcohol intake frequency: a few times a week Hx Substance Use: No Physical Exam Vital Signs Last Vital Signs Temp 36.6 C 12/13/23 07:36 Pulse 60 12/13/23 07:56 Resp 16 12/13/23 07:36 BP 146/86 H 12/13/23 07:36 Pulse Ox 95 12/13/23 07:36 O2 Del Method Room Air 12/13/23 07:36 Testing Laboratory Results 12/13/23 07:30 12/13/23 07:30 PT 10.9 Seconds (9.0-12.0) 12/13/23 07:30 INR 1.0 (0.9-1.1) 12/13/23 07:30 APTT 36 Seconds (21-31) H 12/12/23 16:35 Other Testing CERVICAL SPINE CT CT DOSE: HISTORY: Fall, L ear bleeding, chin laceration, facial pain TECHNIQUE: Multiaxial CT images of the cervical spine were performed and reformatted in the sagittal and coronal plane without the use of contrast. A dose lowering technique was utilized adhering to the principles of ALARA. COMPARISON: None. FINDINGS: There is a displaced/dislocated left mandibular condyle fracture which is better appreciated on the same day maxillofacial CT. No pneumothorax. Prevertebral soft tissues and the C1-C2 interval are intact. No fracture or subluxation within the cervical spine. Mild right and moderate left facet degenerative changes. There is severe disc space narrowing at C5-C6 and C6-C7 with small endplate osteophytes. IMPRESSION: 1. No fractures within the cervical spine. 2. A displaced/dislocated left mandibular condyle fracture which is better appreciated on the same day maxillofacial CT. CT OF THE HEAD WITHOUT CONTRAST CLINICAL HISTORY: Fall, L ear bleeding, chin laceration, facial pain COMPARISON STUDY: No previous studies for comparison. CT DOSE: 1262.87 mGy.cm TECHNIQUE: Helical axial images of the head were obtained without IV contrast. Automated exposure control was utilized for the study. A dose lowering technique was utilized adhering to the principles of ALARA. FINDINGS: No acute intracranial hemorrhage, midline shift or mass effect is present. The ventricular system is unremarkable. The basal cisterns are patent. No extra-axial collections are present. There are no findings to suggest acute dural sinus thrombosis or acute territorial infarct. No calvarial fractures are present. Fracture/dislocation of the left mandibular condyle is better depicted on the facial bone CT which will be reported separately. Soft tissue thickening/small amount of hemorrhage within the left external auditory canal is present. IMPRESSION: 1. No acute intracranial findings. 2. Fracture/dislocation of the left mandibular condyle, better depicted on the facial bone CT which will be reported separately. Soft tissue thickening/small amount of hemorrhage within the left external auditory canal. 3. No calvarial fractures.
--- NOTE | 2023-12-13 10:52 | Electrocardiogram Report ---
Test Reason : Blood Pressure : / mmHG Vent. Rate : 053 BPM Atrial Rate : 053 BPM P-R Int : 180 ms QRS Dur : 120 ms QT Int : 456 ms P-R-T Axes : 046 -08 -14 degrees QTc Int : 427 ms Sinus bradycardia Incomplete right bundle branch block Nonspecific ST and T wave abnormality Abnormal ECG No previous ECGs available Confirmed by Sonu Matos ([id number]) on 12/13/2023 10:51:53 AM Referred By: REFERRED SELF Confirmed By:Chad Matos
[2023-12-13] MEDS ORDERED: PROPOFOL IV EMULSION 10 MG/ML 20 ML VIAL IV ONE (12:17)
[2023-12-13] MEDS ORDERED: LIDOCAINE 2% 2 ML VIAL/AMP(20MG/ML) INFIL ONE (12:17)
[2023-12-13] MEDS ORDERED: ONDANSETRON INJ 2 MG/ML 2 ML VIAL ONE (12:17)
[2023-12-13] MEDS ORDERED: DEXAMETHASONE SOD INJ 4 MG/ML VIAL ONE (12:17)
[2023-12-13] MEDS ORDERED: fentaNYL citrate PF 100 MCG/2 ML VIAL ONE ×2 (12:17→13:59)
[2023-12-13] MEDS ORDERED: LIDOCAINE 2% JELLY 5 ML TUBE EXT ONE (12:20)
[2023-12-13] MEDS ORDERED: OXYMETAZOLINE 0.05% 30 ML BTL ONE (12:20)
[2023-12-13] MEDS ORDERED: HYDROmorphone INJ 1 MG/ML SYRINGE IV PRN (12:43)
[2023-12-13] MEDS ORDERED: ONDANSETRON INJ 2 MG/ML 2 ML VIAL IV PRN (12:43)
[2023-12-13] MEDS ORDERED: ePHEDrine sulfate 50 MG/ML AMP IV PRN (12:43)
[2023-12-13] MEDS ORDERED: ATROPINE SULFATE 0.1 MG/ML 10ML SYR IV PRN (12:43)
[2023-12-13] MEDS: LACTATED RINGER'S 1,000 ML IV SCH (12:48)
--- NOTE | 2023-12-13 13:20 | History & Physical Bridge Note ---
Date of Service December 13, 2023 History & Physical Bridge Note I have examined the patient, reviewed the History & Physical and in the interval since the performance of the History & Physical I have noted the following changes of clinical significance: no changes noted Reviewed the surgery with Zoya and her daughter Jacquie. Understanding was expressed. OK for the planned procedure
--- NOTE | 2023-12-13 13:58 | Hospitalist Progress Note ---
Date of Service December 13, 2023 Assessment & Plan (1) Fall: Plan: -Sustained a ground level fall while walking on a sidewalk earlier today - Unclear if this was mechanical, patient does not remember tripping - No prodromal symptoms prior to the fall - recommend 30 day manager monitoring and discussion with PCP about switch BP medications - will have to coordinate if patient would like to follow with our cardiology or somewhere closer to home -No other acute trauma other than her facial and left ear trauma - NPO in preparation for OR today -BL SCD's for DVT PPX Elevated T.Bili - on admission, pt asymptomatic. AM CBC CMP (2) Mandibular fracture: Plan: -Sustained a Comminuted fracture of the left mandibular neck with displaced fragments and dislocation of the left TMJ - was able to tolerate some soft foods before being NPO - OMFS consult - plan for OR today - Continue Unasyn (3) Facial laceration: Plan: -Sustained a laceration under the left chin, repaired in the ED 12/11 - received a tetanus booster in the ED 12/11 - will need suture removed in 7-10 days from insertion (4) HTN (hypertension): Plan: -Stable -Continue metoprolol - patient and family report no history of afib, on just for BP control, but HR runs in 50-60s - continue event monitor as above Plan Dispo: continued inpatient stay DVT proh: SCDs preop Family updated at bedside. Admission and Anticipated Discharge Date Admission Date: December 12, 2023 Subjective Patient seen sitting in bed prior to surgery, daughter present at bedside. Anxious to have procedure completed. Patient states she is in the [place] area staying with her son while her house is having work done and she can not be in the house. Baseline does not need assistive devices while walking. Patient states she is not sure if she tripped on something while walking, states it all happened so fast. Does not recall getting lightheaded or dizzy. Daughter helps provide collateral history that Zoya fell last Fall and it was thought to be because her heart rate was too low. 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 Review of Systems Review of Systems: All systems reviewed & are unremarkable except as noted in Subjective Physical Exam Physical Exam: General: NAD, VS as above HEENT - chin laceration without signs of infection, swelling on left side of face Resp: normal respiratory effort, lungs clear to auscultation CV: bradycardia, no murmur, Abd: normal bowel sounds, non tender, no hepatosplenomegaly Extremities: Moves all extremities, no edema Neuro: A&O x3, Results & Data Results & Data Vital Signs (Past 12 Hours) Vital Signs Temp Pulse Pulse Resp BP Pulse Ox O2 Del Method 12/13/23 12:33 36.9 C 56 L 56 L 18 168/95 H 98 Room Air 12/13/23 07:56 60 12/13/23 07:36 36.6 C 57 L 16 146/86 H 95 Room Air Laboratory Results CBC, chemistry reviewed PG Care Time/CCT Total # of Minutes Spent Total Time Spent with Patient: Total time spent is greater than 50% in coordination of care (as documented) at patient's floor/unit and/or counseling patient: Coding Level of Care Code 35700 SUB INP/OBS CARE 3/50MIN Diagnoses Fall, initial encounter W19.XXXA Mandibular fracture S02.609A Facial laceration, subsequent encounter S01.81XA HTN (hypertension) I10
[2023-12-13] MEDS ORDERED: SODIUM CHLORIDE 0.9% PF INJ 10 ML VIAL ONE (13:59)
[2023-12-13] MEDS ORDERED: ePHEDrine sulfate 50 MG/ML AMP ONE (13:59)
[2023-12-13] MEDS ORDERED: SUGAMMADEX SODIUM 200 MG/2 ML VIAL IV ONE (14:11)
[2023-12-13] MEDS: BUPIVACAINE/EPINEPHRINE 0.5% 1:200,000 1.8 ML CARP ONE (14:30)
[2023-12-13] MEDS: CHLORHEXIDINE GLUCONATE 0.12% 480 ML MT ONE (14:30)
[2023-12-13] MEDS ORDERED: HYDROcodone/APAP 7.5/325mg/15mL ELIX 15 ML/CUP PO PRN ×2 (15:09)
[2023-12-13] MEDS ORDERED: MoRPHine SULFATE 2 MG/ML CARP IV PRN (15:09)
--- NOTE | 2023-12-13 15:16 | Post Operative Brief Note ---
PG Immediate Post Op with CF Date of Surgery December 13, 2023 Pre & Post Diagnosis Operation Date: 12/13/23 11:00 Pre-Op Diagnosis: Left mandibular fx. Post-Op Diagnosis: Left mandibular fx. I identified the patient and participated in the time-out.: Yes Procedure Operation Date: 12/13/23 11:00 Actual Procedures p Left Mandible Fracture Open Reduction Internal Fixation(Left) - Fish Hightower DMD Surgeon Fish Hightower DMD Litigation Associate none Estimated Blood Loss 2 Findings Consistent with Post-Op Diagnosis fractured left condyle Complications none Disposition Accompanied Patient To Recovery: Yes
[2023-12-13] MEDS: ALBUT/IPRATROP 3MG/0.5MG NEB 3 ML VIAL NEB STA (15:25)
--- NOTE | 2023-12-13 15:48 | Anesthesiology Progress Note ---
Date of Service December 13, 2023 Anesthesia Post Procedure Vital Signs Vital Signs: Temp Pulse Pulse Resp BP Pulse Ox O2 Del Method 12/13/23 12:33 36.9 C 56 L 56 L 18 168/95 H 98 Room Air 12/13/23 07:56 60 12/13/23 07:36 36.6 C 57 L 16 146/86 H 95 Room Air 12/12/23 22:20 36.5 C 60 18 164/95 H 98 Room Air 12/12/23 17:00 62 16 172/102 H 96 Room Air Pain Intensity Left Jaw: Pain Intensity: 4 Transfer of Care Handoff Completed per policy Notes Mental Status: alert / awake / arousable and participated in evaluation Patient Amnestic to Procedure: Yes Nausea / Vomiting: adequately controlled Pain: adequately controlled Airway Patency, RR, SpO2: stable & adequate BP & HR: stable & adequate Hydration State: stable & adequate Anesthetic Complications: no major complications apparent and Pt Satisfied with anesthetic care
--- NOTE | 2023-12-13 15:52 | XRay Report ---
MANDIBLE 3 VIEWS CLINICAL HISTORY: Postoperative examination. FINDINGS: 3 views of the left mandible are correlated with facial bone CT dated 12/12/2023. The skelet al structures are osteopenic. Again seen is a comminuted and displaced fracture of the left mandibula r neck. There is likely dislocation of the left temporomandibular joint. There has been surgical fixa tion and wiring between the anterior aspect of the maxilla and mandible. No new fracture is seen. The bony orbits are intact as visualized. The paranasal sinuses are clear. The mastoid air cells appear well-pneumatized. IMPRESSION: 1. Again seen is a fracture of the left mandibular neck with probable dislocation of the left temporo mandibular joint. 2. Postsurgical change/wiring between the anterior maxilla and mandible as above. Electronically signed by: Bruno Penn M.D. 12/13/2023 3:51 PM
[2023-12-13] MEDS: ALBUT/IPRATROP 3MG/0.5MG NEB 3 ML VIAL ONE (16:05)
[2023-12-13] MEDS: ONDANSETRON INJ 2 MG/ML 2 ML VIAL IV PRN (16:10)
[2023-12-13] MEDS: hydrALAZINE HCL 20 MG/ML VIAL IV STA (16:23)
[2023-12-13] MEDS: hydrALAZINE HCL 20 MG/ML VIAL ONE (16:33)
[2023-12-13] MEDS: fentaNYL citrate PF 100 MCG/2 ML VIAL IV PRN (16:52)
--- NOTE | 2023-12-13 17:25 | Anesthesiology Progress Note ---
Date of Service December 13, 2023 Anesthesia Post Procedure Vital Signs Vital Signs: Temp Pulse Pulse Pulse Resp BP BP 12/13/23 17:15 78 19 171/95 H 12/13/23 17:05 36.2 C L 70 20 174/97 H 12/13/23 16:55 68 20 177/94 H 12/13/23 16:45 69 18 173/92 H 12/13/23 16:35 65 24 176/95 H 12/13/23 16:25 62 21 203/115 H 12/13/23 16:15 62 20 190/115 H 12/13/23 16:05 61 20 198/102 H 12/13/23 15:55 62 22 193/105 H 12/13/23 15:45 60 21 197/109 H 12/13/23 15:35 60 22 203/108 H 12/13/23 15:25 60 20 208/104 H 12/13/23 15:15 61 21 207/107 H 12/13/23 15:09 36.3 C L 60 18 203/106 H 12/13/23 12:33 36.9 C 56 L 56 L 18 168/95 H 12/13/23 07:56 60 12/13/23 07:36 36.6 C 57 L 16 146/86 H 12/12/23 22:20 36.5 C 60 18 164/95 H Pulse Ox O2 Del Method O2 Flow Rate 12/13/23 17:15 95 Room Air 12/13/23 17:05 94 Room Air 12/13/23 16:55 97 Room Air 12/13/23 16:45 98 Room Air 12/13/23 16:35 99 Room Air 12/13/23 16:25 98 Nasal Cannula 2 12/13/23 16:15 99 Nasal Cannula 2 12/13/23 16:05 100 Nasal Cannula 2 12/13/23 15:55 97 Nasal Cannula 2 12/13/23 15:45 97 Nasal Cannula 2 12/13/23 15:35 98 Nasal Cannula 2 12/13/23 15:25 96 Nebulizer 6 12/13/23 15:15 95 Oxymask 8 12/13/23 15:09 95 Oxymask 8 12/13/23 12:33 98 Room Air 12/13/23 07:56 12/13/23 07:36 95 Room Air 12/12/23 22:20 98 Room Air Pain Intensity Left Jaw: Pain Intensity: 4 Head: Pain Intensity: 7 Transfer of Care Handoff Completed per policy Notes Mental Status: alert / awake / arousable Patient Amnestic to Procedure: Yes Nausea / Vomiting: adequately controlled Pain: adequately controlled Airway Patency, RR, SpO2: stable & adequate BP & HR: stable & adequate Hydration State: stable & adequate Anesthetic Complications: no major complications apparent and Pt Satisfied with anesthetic care
[2023-12-13] MEDS: TRIAMCINOLONE ACET 0.1% OINT 15 GM TUBE ONE (17:28)
[2023-12-13] MEDS: KETOROLAC TROMETHAMINE 15 MG/ML VIAL IV SCH (17:31)
[2023-12-13] MEDS: dexAMETHasone 6 MG in SYRINGE 0 ML IV SCH (17:31)
[2023-12-13] MEDS: LORazepam 1 MG in SYRINGE 0.5 ML IV PRN (17:51)
[2023-12-13] MEDS: CHLORHEXIDINE GLUCONATE 0.12% 480 ML MT SCH (20:30)
[2023-12-14] MEDS: ACETAMINOPHEN SUSP 325 MG/10.15 ML UDC PO PRN (06:08)
[2023-12-14] MEDS ORDERED: Nursing to Pharmacy Communication SCH (06:30)
[2023-12-14 06:52] LABS: Basophils # (auto) 0.01 K/uL (0.00-0.20); Basophils % (auto) 0.1 %; Hemoglobin 14.8 g/dl (12.0-16.0); Immature Granulocytes # (auto) 0.04 K/uL (0.01-0.20); Immature Granulocytes % (auto) 0.4 %; Lymphocytes # (auto) 0.68 K/uL (1.20-3.40); Lymphocytes % (auto) 7.1 %; Mean Corpuscular Hemoglobin 31.9 pg (25.0-34.0); Mean Corpuscular Hgb Conc 35.2 g/dL (32.0-36.0); Mean Corpuscular Volume 90.5 fL (80.0-100.0); Mean Platelet Volume 9.5 fL (9.4-12.4); Monocytes # (auto) 0.28 K/uL (0.11-0.59); Monocytes % (auto) 2.9 %; Neutrophils # (auto) 8.55 K/uL (1.40-6.50); Neutrophils % (auto) 89.5 %; Platelet Count 223 K/uL (130-400); RDW Coefficient of Variation 13.2 % (11.5-14.5); RDW Standard Deviation 43.3 fL (36.4-46.3); Red Blood Count 4.64 M/uL (4.20-5.40); White Blood Count 9.56 K/ul (4.8-10.8)
[2023-12-14] MEDS ORDERED: ACETAMINOPHEN SUSP 160 MG/5 ML BTL PO SCH (07:00)
[2023-12-14 07:13] LABS: Albumin Globulin Ratio 1.5 (0.9-2); Albumin Level 3.9 gm/dl (3.4-5.0); BUN Creatinine Ratio 24.2 (10-20); Bilirubin,Total 1.3 mg/dl (0.2-1.0); Calcium 9.3 mg/dl (8.6-10.3); Creatinine Clr Calc Pharmacy 59.1 ml/min; Est GFR (African American) 90.8 ml/min; Est GFR (Non-African American) 78.3 ml/min; Globulin 2.6 gm/dl (2.5-4.0); Total Protein 6.5 gm/dl (6.0-8.3)
[2023-12-14] MEDS: ACETAMINOPHEN SUSP 325 MG/10.15 ML UDC PO SCH (07:31)
--- NOTE | 2023-12-14 12:41 | Oral/Maxillofacial Progress Nt ---
Date of Service December 14, 2023 Assessment & Plan Admission and Anticipated Discharge Date Admission Date: December 12, 2023 Subjective Fracture surgery post op note at 24 hours Excellent result, Tissue tone, gingival tissue--excellent Occlusion very stable with the wire fixation. Minimal pain in the face or TMJ Orthodontic followup pending No nasal congestion or bleeding, septum well positioned. No sinus issues Facial alignment excellent Fixation stable Taking fluids and eating better then expected. Has voided, needs to get out of bed and walk at first with assistance--then if OK may D/C Reviewed post op care--diet, oral care, need to carry wire cutters, activities, follow up. Next appointment set up for: 9:[address] Hightower Overall excellent result from recent closed reduction surgery Rx e mailed to [facility] Post op X Rays--excellent reduction. OK for Discharge if OK by medical Results & Data Vital Signs (Past 12 Hours) Vital Signs Temp Pulse Resp BP Pulse Ox Pulse Ox O2 Del Method 12/14/23 12:12 96 12/14/23 08:00 98 12/14/23 07:50 Room Air 12/14/23 07:35 73 18 143/82 H 95 Room Air 12/14/23 03:10 96 12/14/23 02:19 95 12/14/23 01:58 36.8 C 68 17 149/82 H 95 Room Air 12/14/23 01:00 95 O2 Del Method 12/14/23 12:12 Room Air 12/14/23 08:00 Room Air 12/14/23 07:50 12/14/23 07:35 12/14/23 03:10 Room Air 12/14/23 02:19 Room Air 12/14/23 01:58 12/14/23 01:00 Room Air PG Care Time/CCT Total # of Minutes Spent Total Time Spent with Patient: Total time spent is greater than 50% in coordination of care (as documented) at patient's floor/unit and/or counseling patient: Coding Level of Care Code None
[2023-12-14] MEDS ORDERED: MoRPHine SULFATE 10 MG/0.5 ML UDP PO PRN (13:09)
--- NOTE | 2023-12-14 16:22 | Discharge Summary ---
Discharge Summary Date of Service December 14, 2023 Notes For Next Care Provider Patient admitted after fall, unclear if it was mechanical or not initially said she tripped but then later does not recount actually tripping. For this reason she was ordered a 30-day desk monitor on discharge, results will be sent to her PCP. She suffered a mandibular fracture from her fall, had surgery with Dr. Monet, resulting in her jaw being wired shut, has follow up with Dr. Monet Sunday 12/17. Concerns for bradycardia on metoprololpatient does not think she has a history of A-fib, if not would recommend a different antihypertensive for this patient, possibly amlodipine. But will defer this decision to PCP. Patient is aware Medication Changes From Visit Antibiotics and pain control sent in by Dr. Monet Advised to hold medications until jaw is no longer wired shut Admission HPI Per Admitting Provider Zoya is an 88 year old female with a PMH significant for HTN who presented to the [facility] ED on 12/12/23 after sustaining a left ear and left chin laceration from a ground level fall this afternoon. She was noted to be hypertensive on arrival at 188/139 but was otherwise stable. Labs were significant for a sodium of 132. CT head/brain wo con was read as No acute intracranial findings. 2. Fracture/dislocation of the left mandibular condyle, better depicted on the facial bone CT which will be reported separately. Soft tissue thickening/small amount of hemorrhage within the left external auditory canal.3. No calvarial fractures.. CT face wo con was read as 1. Comminuted fracture of the left mandibular neck with displaced fragments and dislocation of the left TMJ. 2. The remainder of the mandible appears intact. 3. No additional facial bone fracture is seen.. Cervical spine CT was read as 1. No fractures within the cervical spine. 2. A displaced/dislocated left mandibular condyle fracture which is better appreciated on the same day maxillofacial CT.. Prior to admission the patient was given a dose of Unasyn, 1L NSS, and a tetanus booster. Dr. Monet will take the patient to the OR tomorrow for surgical repair. At the time of the exam the patient was sitting in bed in no acute distress, currently eating dinner consisting of soft food. She states that she was going on a walk when her foot caught the sidewalk causing her to lose her balance and fall. She landed on her left side hitting her chin and left side of her face on the ground. She did not lose consciousness and was able to get herself off the ground. After her fall she was experiencing pain at the site of her chin laceration along with left upper jaw pain. She was evaluated by Urgent Care who sent her to the ED after they noticed blood in her left internal auditory canal. She denies current headache, changes in vision, hearing, taste, smell, dizziness, lightheadedness, chest pain, SOB, cough, nausea, vomiting, diarrhea, dysuria, hematuria. She is a full code and would want her daughter to make medical decisions for her is she cannot make them herself. Please refer to Dr. Merrill's attestation for any changes to the treatment plan Principal Dx & Hospital Course #1 = Principal Diagnosis (1) Fall: -Sustained a ground level fall while walking on a sidewalk earlier today - Unclear if this was mechanical, patient does not remember tripping - No prodromal symptoms prior to the fall - 30 day desk monitor ordered with results sent to PCP - Recommend discussion with PCP about switch BP medications -No other acute trauma other than her facial and left ear trauma (2) Mandibular fracture: -Sustained a Comminuted fracture of the left mandibular neck with displaced fragments and dislocation of the left TMJ - was able to tolerate some soft foods before being NPO - OMFS consult - s/p Left mandibular fracture open reduction and internal fixation with Dr. Monet 12/12 - Jaw is wired shut, carry around wire cutters - Liquid diet as tolerated - follow up apointment 12/17 - - Received Unasyn while inpatient, discharged with Augmentin Pain control per Dr. Monet (3) Facial laceration: -Sustained a laceration under the left chin, repaired in the ED 12/11 - received a tetanus booster in the ED 12/11 - will need suture removed in 7-10 days from insertion - has follow up with Dr. monet (4) HTN (hypertension): -Stable -Continue metoprolol - patient and family report no history of afib, on just for BP control, but HR runs in 50-60s - continue event monitor as above Plan Dispo: discharge to home Family updated at bedside. Discharge Exam General: NAD, VS as above HEENT - chin laceration without signs of infection, swelling on left side of face. Jaw wired shut but able to communicate Resp: normal respiratory effort, lungs clear to auscultation CV: bradycardia, no murmur, Abd: normal bowel sounds, non tender, no hepatosplenomegaly Extremities: Moves all extremities, no edema Neuro: A&O x3, Updated Medication List Medication Instructions Recorded Confirmed Type Vitamin D3 1 tab PO DAILY 12/12/23 12/12/23 History ascorbic acid (vitamin C) 1 - 2 tabs PO DAILY 12/12/23 12/12/23 History aspirin 81 mg tablet,delayed 81 mg PO DAILY 12/12/23 12/12/23 History release biotin 1 cap PO DAILY 12/12/23 12/12/23 History calcium 2 tab PO DAILY 12/12/23 12/12/23 History metoprolol tartrate 25 mg tablet 12.5 mg PO DAILY 12/12/23 12/12/23 History qmlinroz-rvwmabre-xdt C 250 1 tab PO UD 12/12/23 12/12/23 History mg-herbal no.124 8.875 mg chewable tablet (Airborne (ascorbic acid)) multivitamin 1 tab PO DAILY 12/12/23 12/12/23 History vitamin E 1 tab PO DAILY 12/12/23 12/12/23 History acetaminophen 325 mg/10.15 mL oral 650 mg (20.3 mL) PO Q4H PRN fever 12/14/23 Rx suspension or pain 10 days #50 mL amoxicillin 400 mg-potassium 11 ml PO BID 10 days #220 mL 12/14/23 Rx clavulanate 57 mg/5 mL oral suspension chlorhexidine gluconate 0.12 % 15 ml MT BID 15 days #200 mL 12/14/23 Rx mouthwash hydrocodone 7.5 mg-acetaminophen 15 ml PO Q4H PRN pain #473 mL 12/14/23 Rx 325 mg/15 mL oral solution lorazepam 1 mg tablet (Ativan) 1 mg PO DAILY PRN ANEXITY 12/14/23 Rx SECONDARY TO JAWS WIRED CLOSED #20 tabs morphine 10 mg/5 mL oral solution 5 mg (2.5 mL) PO Q6H #100 mL 12/14/23 Rx Hospital Stay Data Consultations 12/12/23 18:40 ED Decision to Admit Stat Procedures Performed Operation Date: 12/13/23 11:00 Actual Procedures p Left Mandible Fracture Open Reduction Internal Fixation(Left) - Fish Monet DMD Diagnostic Imagining Performed Cervical Spine CT 12/12/23 13:[address] DOSE: HISTORY: Fall, L ear bleeding, chin laceration, facial pain TECHNIQUE: Multiaxial CT images of the cervical spine were performed and reformatted in the sagittal and coronal plane without the use of contrast. A dose lowering technique was utilized adhering to the principles of ALARA. COMPARISON: None. FINDINGS: There is a displaced/dislocated left mandibular condyle fracture which is better appreciated on the same day maxillofacial CT. No pneumothorax. Prevertebral soft tissues and the C1-C2 interval are intact. No fracture or subluxation within the cervical spine. Mild right and moderate left facet degenerative changes. There is severe disc space narrowing at C5-C6 and C6-C7 with small endplate osteophytes. IMPRESSION: 1. No fractures within the cervical spine. 2. A displaced/dislocated left mandibular condyle fracture which is better appreciated on the same day maxillofacial CT. ACT 112: Negative or not required by law. Electronically signed by: Sawyer Zuniga M.D. 12/12/2023 2:[address] 12/12/23 13:31 CT SCAN OF THE FACIAL BONES WITHOUT IV CONTRAST CLINICAL HISTORY: Fall. Bleeding from left ear. Chin laceration. COMPARISON STUDY: No priors. TECHNIQUE: High-resolution CT scan of the facial bones is performed. Images are reviewed in the axial, sagittal, and coronal planes. IV contrast was not administered for this examination. A dose lowering technique was utilized adhering to the principles of ALARA. FINDINGS: The skeletal structures are osteopenic. There is a comminuted and displaced fracture through the left mandibular neck with displaced fragments and dislocation of the left temporomandibular joint. There is surrounding hemorrhage. The remainder of the mandible appears intact. The right temporomandibular joint is preserved. The bony orbits are intact and the orbital contents are within normal limits noting bilateral ocular lens implants. The zygomatic arches, nasal bones, and pterygoid plates are preserved. The maxilla images intact. There are no layering blood products within the paranasal sinuses. There is trace mucosal thickening within the maxillary antra noting a 9 mm retention cyst on the left. Trace mucosal thickening is also seen in the ethmoid sinuses. Mastoid air cells are well pneumatized. The visualized calvarium and upper cervical spine are maintained. Partially imaged brain parenchyma is within normal limits. IMPRESSION: 1. Comminuted fracture of the left mandibular neck with displaced fragments and dislocation of the left TMJ. 2. The remainder of the mandible appears intact. 3. No additional facial bone fracture is seen. ACT 112: Negative or not required by law. Electronically signed by: Bruno Penn M.D. 12/12/2023 2:[address] 12/12/23 13:31 CT OF THE HEAD WITHOUT CONTRAST CLINICAL HISTORY: Fall, L ear bleeding, chin laceration, facial pain COMPARISON STUDY: No previous studies for comparison. CT DOSE: 1262.87 mGy.cm TECHNIQUE: Helical axial images of the head were obtained without IV contrast. Automated exposure control was utilized for the study. A dose lowering technique was utilized adhering to the principles of ALARA. FINDINGS: No acute intracranial hemorrhage, midline shift or mass effect is present. The ventricular system is unremarkable. The basal cisterns are patent. No extra-axial collections are present. There are no findings to suggest acute dural sinus thrombosis or acute territorial infarct. No calvarial fractures are present. Fracture/dislocation of the left mandibular condyle is better depicted on the facial bone CT which will be reported separately. Soft tissue thickening/small amount of hemorrhage within the left external auditory canal is present. IMPRESSION: 1. No acute intracranial findings. 2. Fracture/dislocation of the left mandibular condyle, better depicted on the facial bone CT which will be reported separately. Soft tissue thickening/small amount of hemorrhage within the left external auditory canal. 3. No calvarial fractures. ACT 112: Negative or not required by law. Electronically signed by: Gasper Baxter M.D. 12/12/2023 2:23 PM Mandible X-Ray 12/13/23 15:09 MANDIBLE 3 VIEWS CLINICAL HISTORY: Postoperative examination. FINDINGS: 3 views of the left mandible are correlated with facial bone CT dated 12/12/2023. The skeletal structures are osteopenic. Again seen is a comminuted and displaced fracture of the left mandibular neck. There is likely dislocation of the left temporomandibular joint. There has been surgical fixation and wiring between the anterior aspect of the maxilla and mandible. No new fracture is seen. The bony orbits are intact as visualized. The paranasal sinuses are clear. The mastoid air cells appear well-pneumatized. IMPRESSION: 1. Again seen is a fracture of the left mandibular neck with probable dislocation of the left temporomandibular joint. 2. Postsurgical change/wiring between the anterior maxilla and mandible as above. Electronically signed by: Bruno Penn M.D. 12/13/2023 3:51 PM Pending Results Patient Have Any Pending Studies at Discharge: No Discharge Instructions Given to Patient (Per Discharging Provider) Ms. Manrique, Kendrick were hospitalized after a fall, landing on your face resulting in a mandibular fracture. This was repaired by Dr. Monet on 12/12. Overall you are progressing well and should follow his instructions below. From a medicine [facility] there was concerned that the fall was not actually mechanical, for that reason we have ordered a 30-day heart monitor to make sure there are no arrhythmias with your heart that cause you to fall. This will be delivered to your son's house, results will go to your primary care doctor and she can help you decide if you need to see a slag mixer. As we discussed, would also discussed with your primary care doctor about switching your metoprolol to a different medication that does not lower your heart rate is much. Okay to hold of on your vitamins until able to open mouth and take solids. Activity: You can do normal everyday activities as your body allows. Take rest breaks if you feel tired. Do not overexert. Stop activity if you have pain, shortness of breath or feel dizzy. Follow-up appointments: Make an appointment with your primary care physician within one week of discharge. A copy of this summary will be sent to them. Every time you see your primary care physician, or any other doctor, bring your medication list, and a list of questions. CONTACT YOUR PRIMARY CARE PROVIDER if you experience any of the following: Shortness of breath or difficulty breathing Fevers or chills Feeling tired with normal activity or experiencing dizziness or fainting Difficulty following your treatment plan, or difficulty taking medications CALL 911 OR GO TO THE EMERGENCY DEPARTMENT if you experience any of the following: Severe abdominal pain or nausea/vomiting Severe chest pain, or chest pain that radiates (moves) to your jaw or arm Sudden, severe shortness of breath or difficulty breathing Thank you for allowing us to participate in your care. Debby Dwyer PA-C GENERAL POST-OPERATIVE INSTRUCTIONS FOR PATIENTS HAVING JAW SURGERY POST-OP INSTRUCTIONS FOLLOW UP WITH DR MONET MondayDECEMBER 17 AT 9:45 AM. BLEEDING: Will be under control by the time you leave our operating room. Some oozing or blood-tinged saliva may persist for up to 24 hours. Should excessive bleeding occur call the office or Dr. Monet. Expect nasal oozing for a few days. This also will occur after getting up or after you shower. PAIN: Is best controlled by the medications recommended. They are most effective when taken before the local anesthesia diminishes and normal sensation returns to the area. Do not take pain pills on an empty stomach. Narcotic pain medication such as Vicodin or Percocet may cause nausea, vomiting, drowsiness, dizziness, itching or constipation. If these side effects occur, discontinue the medication. You may take an alternative over the counter pain medication (Tylenol or Motrin) as necessary or call our office for assistance. SWELLING: May occur immediately and increase gradually over 24-48 hours. Swelling from the surgical procedure will maximize at 48-72 hours. Ice packs applied externally to the area at 20 minute intervals throughout the day of surgery may help control swelling, but only use them if advised to by our office. Sleeping with the head of bed elevated above the level of the heart for the st two post-operative nights may tend to lessen swelling. NAUSEA: May result from a general anesthetic or the drugs prescribed for pain. Drinking a small glass of a carbonated beverage will generally control mild nausea. If not controlled, call the office. The Zofran ODT may be used as instructed. DIET: Soft foods and liquids will be required for 24-48 hours following surgery. Avoid hot, spicy foods. Do not smoke. If your jaw is wired together -liquid diet ONLY. ORAL HYGIENE: Should not be neglected. [place] your teeth as usual and rinse with warm salt water after each meal beginning gently the night of surgery. Use Peridex twice a day. Other mouth rinses can be used to keep your mouth clean. ACTIVITY: Should be restricted to a minimum for the first 7 -10 days. Strenuous work or exercise may promote bleeding. If you have had a general anesthetic or sedation, we must require that you be accompanied home by a responsible adult and an adult stays with you until recovered from the effects of the anesthesia. Under no circumstances are you to drive a car for at least 24 hours. FEVER: After surgery it is normal for the body temperature to be slightly elevated for 24 hours. SIDE EFFECTS: Such as an ear ache, temporary ache of adjacent teeth, restricted mouth opening, stretching or cracking at the corners of the mouth or discoloration of the skin may occur postoperatively. These are temporary conditions that will improve as healing progresses. As a result of the surgery your bite will feel off, this is normal. Your lower and upper lip will also feel numb as a result of the surgery; over time this will subside. EMERGENCIES: In case of profuse bleeding, uncontrolled pain, persistent nausea or abnormal elevation of temperature, if you have any questions about these instructions or your surgery please call our office or Dr. Miller cell phone. Our goal is to make this procedure as safe and pleasant as possible. Email Dr. Monet---[email or web address] Phone Dr. Monet after hours and weekends, Phone (office) [phone] Total Time Total Time Spent Total Time Spent (In Minutes): Time spend day of discharge 45 minutes including direct patient care, medication reconciliation, documentation, review of labs and images, and coordination of care. Supervising Physician Co-Signing Physician Notes During face to face encounter, I obtained a brief physical examination, discussed hospital stay with patient and discharge instructions with patient. I discussed discharge plan of care with JC Dwyer. I reviewed above note and agree with it except for the following: Patient seen for a fall and mandibular fracture. 30 day event monitor ordered. Coding Level of Care Code 47938 INP/OBS DISCH >30 MIN Diagnoses Fall, initial encounter W19.XXXA Mandibular fracture S02.609A Facial laceration, subsequent encounter S01.81XA HTN (hypertension) I10
--- NOTE | 2023-12-19 10:03 | Operative Report ---
PG Post Operative Report Pre & Post Diagnosis Operation Date: 12/13/23 11:00 Pre-Op Diagnosis: Left mandibular fx. Post-Op Diagnosis: Left mandibular fx. I identified the patient and participated in the time-out.: Yes Procedure Operation Date: 12/13/23 11:00 Actual Procedures p Left Mandible Fracture Open Reduction Internal Fixation(Left) - Fish Hightower DMD CPT 25992 ICD 10 S02.612A Surgeon Fish Hightower DMD Homoeopath none Estimated Blood Loss 2 Findings Consistent with Post-Op Diagnosis Specimens none Drains none Complications none Disposition Accompanied Patient To Recovery: Yes Indications left fracture of the condyle head with open and shifted bite Description of Procedure ADMITTING DIAGNOSES: Displaced mandibular fracture CPT 77633 ICD 10 S02.612A OPERATION: Closed reduction of bilateral mandibular fractures with placement of hybrid arch bars OPERATION IN DETAIL: After this patient was cleared to undergo general, The patient was placed under general anesthesia via a nasotracheal intubation. After an appropriate time-out was taken to ensure that we had Mrs. Kindra Manrique in our operating room with the proper equipment. After everyone agreed, the operation began. The patient was deeply anesthetized and the tubes were secured. The patient was prepped and draped in the usual manner. Given the nature of the fracture, a closed functional approach will be used. Hybrid Arch bars will be placed on the upper/lower teeth and then a fixation for at least 3 weeks with 25 g wire Placement of Arch Bars Upper/Lower teeth: Local anesthesia in the form of Marcaine with a vasoconstrictor, approximately 4 carpules of the local anesthesia was injected. The fractured was reduced and the occlusion was checked. The arch bars were placed on the lower and upper teeth as per Lyndon Hoang protocol Placement of inter-arch (dental) fixation with 25 delilah wire I removed the throat packs, irrigated the oral cavity and suctioned it dry and passed an OG tube. I was able to carefully place the mandible into proper inter-dental relationship with the maxilla. The occlusion was stable and the opening was w/o restriction or interference Revision of the chin laceration with a 6-0 nylon suture and Stri Strips Recovery Phase: At this time the sponge and instruments count was correct. The patient was allowed to recover in the usual manner and then once fully recovered moved to the recovery room, Post op plans: My plan is to keep the patient in wire fixation for 3 weeks. Then I will remove the wire and start on elastic therapy with a modified exercise program and soft diet for the next 3-4 weeks. We will keep the arch bars in place for a total of 6-8 weeks, then return her to the operating room for removal of the maxillary/mandibular fixation devices. Outcome: Transported in stable condition to post anesthesia recovery area. The patient tolerated the surgical procedure and anesthesia extremely well and I anticipate an uneventful postoperative course. I attest to the content of the Intraoperative Record and any orders documented therein. Any exceptions are noted below.
== END 2023-12-14 17:39 | disposition home or self-care (01) | DRG 142 ==
LOC: ED 12:51 → SUATTDRO 19:24 → 3W 19:24 → 3N 12-13 19:02
DX: Y92.480 Sidewalk as the place of occurrence of the external cause; Z79.82 Long term (current) use of aspirin; S02.612A Fracture of condylar process of left mandible, initial encounter for closed fracture; Y92.89 Other specified places as the place of occurrence of the external cause; R00.1 Bradycardia, unspecified; W18.09XA Striking against other object with subsequent fall, initial encounter; S01.81XA Laceration without foreign body of other part of head, initial encounter; I10 Essential (primary) hypertension